=== PATIENT | female | born 1955 | race Caucasian/White ===

== ENCOUNTER 2020-09-06 06:34 | Day surgery (SDC) | payer MEDICARE | END 2020-09-06 07:20 | disposition home or self-care (01) | LOC: SDC-PAIN 06:34 | PROVIDERS: ATTEND Psychiatry & Neurology Pain Medicine | DX: Z53.9 Procedure and treatment not carried out, unspecified reason (principal) ==

== ENCOUNTER 2020-09-20 09:18 | Day surgery (SDC) | payer MEDICARE ==
[2020-09-20] MEDS ORDERED: BUPIVACAINE 0.5% VIAL IJ ONE (09:19)
[2020-09-20] MEDS ORDERED: DIPRIVAN 200 MG/20 ML IV ONE (10:12)
--- NOTE | 2020-09-20 11:10 | XRAY ---
Indication: Ganglion impar nerve block. Intraoperative fluoroscopy provided for 13 seconds. Single lateral digital spot image submitted for interpretation demonstrates posterior needle tip projecting just anterior to the sacrococcygeal junction. Small amount of contrast injected for needle tip placement. Correlate with intraoperative findings/report.
--- NOTE | 2020-09-20 11:10 | XRAY ---
13 seconds fluoroscopy time in surgery for ganglion impar nerve block.
[2020-09-20] MEDS ORDERED: Lactated Ringers 1,000 ML IV ONE (15:27)
== END 2020-09-20 10:34 | disposition home or self-care (01) ==
LOC: SDC-PAIN 09:18
PROVIDERS: ATTEND Psychiatry & Neurology Pain Medicine
DX: M53.3 Sacrococcygeal disorders, not elsewhere classified (principal); E11.9 Type 2 diabetes mellitus without complications; I10 Essential (primary) hypertension; E78.00 Pure hypercholesterolemia, unspecified; E05.90 Thyrotoxicosis, unspecified without thyrotoxic crisis or storm; G47.30 Sleep apnea, unspecified; F41.9 Anxiety disorder, unspecified; Z79.899 Other long term (current) drug therapy
CPT/HCPCS: 64520; 72020; 77002; 82947; J2704; Q9966

== ENCOUNTER 2020-12-13 08:47 | Day surgery (SDC) | payer MEDICARE ==
[2020-12-13] MEDS ORDERED: Depo-Medrol 40 MG/ML IM ONE (08:48)
[2020-12-13] MEDS ORDERED: Xylocaine 1% Vial 30 ML PF IJ ONE (08:48)
[2020-12-13] MEDS ORDERED: Sodium Chloride 0.9(Preservative Free) 10 ML IJ ONE (08:48)
[2020-12-13] MEDS ORDERED: DIPRIVAN 200 MG/20 ML IV ONE (10:02)
--- NOTE | 2020-12-13 12:39 | XRAY ---
Indication: Caudal KARIME. Intraoperative fluoroscopy provided for 19 seconds. Single digital spot image submitted for interpretation demonstrates caudal needle tip projecting mid sacrum. Small amount of contrast injected for needle tip placement. Correlate with intraoperative findings/report.
--- NOTE | 2020-12-13 14:41 | XRAY ---
19 seconds fluoroscopy time in surgery for caudal KARIME.
[2020-12-13] MEDS ORDERED: Lactated Ringers 1,000 ML IV ONE (16:34)
== END 2020-12-13 10:32 | disposition home or self-care (01) ==
LOC: SDC-PAIN 08:47
PROVIDERS: ATTEND Psychiatry & Neurology Pain Medicine
DX: M54.16 Radiculopathy, lumbar region (principal); E11.9 Type 2 diabetes mellitus without complications; Z79.899 Other long term (current) drug therapy
CPT/HCPCS: 72020; 77003; 82947; J1030; J2001; J2704